=== PATIENT | female | born 1960 | race Caucasian/White ===

== ENCOUNTER 2017-08-13 05:50 | Inpatient (IN) ==
[~2017-08-13 05:50] MED LIST: Bacitracin 50,000 UNIT, Polymyxin B Sulfate 500,000 UNIT, Sodium Chloride IRRigation 1,... IR ONE
[2017-08-13] MEDS ORDERED: Lidocaine -MPF 1% 2 ML VIAL ID ONE (06:17)
[2017-08-13] MEDS ORDERED: CeFAZolin Syr 2,000MG/20 ML 2,000 MG/20 ML SYRINGE IVPB ONE (06:17)
[2017-08-13] MEDS ORDERED: Albuterol 2.5 MG/3 ML NEBULIZER IH ONE (06:17)
[2017-08-13] MEDS ORDERED: Ringers Solution, Lactated 1,000 ML IVC SCH ×2 (06:30→11:59)
[2017-08-13] MEDS ORDERED: *HR* FentaNYL (PF) 100 MCG/2 ML VIAL ONE (07:11)
[2017-08-13] MEDS ORDERED: *HR* Midazolam HCl 2 MG/2 ML VIAL ONE (07:11)
[2017-08-13] MEDS ORDERED: *HR* Remifentanil 2 MG VIAL IVP ONE (07:11)
[2017-08-13] MEDS ORDERED: *HR* Propofol 200 MG/20 ML VIAL IVP ONE (07:11)
[2017-08-13] MEDS ORDERED: Lidocaine -MPF 2% 2 ML VIAL ONE (07:18)
[2017-08-13] MEDS ORDERED: *HR* Succinylcholine 200 MG/10 ML VIAL IVP ONE (07:18)
[2017-08-13] MEDS ORDERED: *HR* Rocuronium Bromide 50 MG/5 ML VIAL ONE (07:18)
[2017-08-13] MEDS ORDERED: Pregabalin 75 MG CAPSULE PO ONE (07:37)
[2017-08-13] MEDS ORDERED: Acetaminophen IV 1,000 MG/100 ML INFUS..BTL IVPB ONE (07:37)
[2017-08-13] MEDS ORDERED: Famotidine 20 MG/2 ML VIAL IVP ONE (07:37)
--- NOTE | 2017-08-13 07:38 | History & Physical Report ---
Date of Encounter: 08/13/17 Time of Encounter: 07:30 24 Hour HP Update - Instructions Instructions: If the History and Physical is less than 30 days old and was completed prior to A.M. admission and or procedure and has NOT been updated on calendar day of procedure please complete this update prior to performing procedure. - Update Patient reports changes in Medical Condition: No Changes in examination, assessment, or condition: No Changes in Medication: No Preop tests/diagnostics Reviewed: Yes Pre-Op MRSA Screen: Negative Surgery Remains Indicated: Yes Consent for Planned Operative Procedure(s) Verified: Yes - Pre-Operative Checklist Preoperative Checklist Indicated: No Prophylactic Antibiotic Ordered: Yes Home Medications Include Beta Bala: No Beta Bala Taken Today (Day of Surgery): No Beta Bala Taken Yesterday (Day Prior to Surgery): No Is VTE Prophylaxis Indicated?: Yes
--- NOTE | 2017-08-13 07:45 | Anesthesia Evaluation PreOp ---
Date of Encounter: 08/13/17 Time of Encounter: 07:40 - Past History Planned Operation: PLIF L4-5 Cardiac History: Denies any Significant Hx Pulmonary History: Smoker [employer] History: Denies Any Significant HX Other Medical History: Denies Any Significant HX Anesthesia History: No Prior Anesthetic Complications : No Alcohol Use: none Drug use: none Medications and Allergies PARoxetine HCl [Paroxetine HCl] 40 mg PO DAILY 08/13/17 [History] Tramadol HCl [Ultram] 50 mg PO QID PRN 08/13/17 [History] Varenicline Tartrate [Chantix Continuing Months Pack] 1 mg PO DAILY 08/13/17 [ History] 3 Allergy/AdvReac Type Severity Reaction Status Date / Time No Known Allergies Allergy Verified 08/13/17 07:16 - Meds/Allergy Pre-op Review Medications Reviewed: Yes Allergies Reviewed: Yes Beta Blockers on Current Med List: No Anesthesia Results - Labs Laboratory Tests 08/01/17 08/01/17 09:52 09:52 Hgb 15.5 H Hct 45.8 H Plt Count 204 Sodium 137 Potassium 4.1 BUN 16 Creatinine 0.64 Anesthesia Exam O2 Sat Height 1.52 m Height 1.52 m Height 1.52 m Weight 58.967 kg Weight 58.967 kg Weight 58.967 kg O2 Sat by Pulse Oximetry 96 O2 Sat by Pulse Oximetry 96 O2 Sat by Pulse Oximetry 96 Vital Signs Temp Pulse Resp BP Pulse Ox 98.8 F 56 18 144/62 96 08/13/17 06:16 08/13/17 06:16 08/13/17 06:16 08/13/17 06:16 08/13/17 06:16 Height: 5'0 Weight: 130 lbs NPO (# of Hours): MN Pain Scale: 0 - HEENT Pupil (Motor): Pupils equal, EOMI Mallampati: II Teeth: Normal Oral Opening: Greater than 3 - [employer] LOC: Oriented [employer] Motor: Normal RUE, Normal LUE, Normal Face, Deficit RLE, Deficit LLE ( slight weakness bilat) [employer] Sensory: Normal: RUE, LUE, Face, Deficit: RLE, LLE (paresthesia bilat) - Cardiac Rhythm: Regular Murmur: None JVD: No Carotid Bruit: No - Pulmonary Breath Sounds: bilateral Clear Respiratory Effort: Symmetrical Anesthesia Assess/Plan ASA Score: 2 Modified [place] Scale for Level of Consciousness: Cooperative, oriented, and tranquil Anesthetic Plan: General Monitoring Plan: Standard Monitors Recovery Plan: PACU (Discussed GA, agrees to proceed)
[2017-08-13] MEDS ORDERED: EPHEDrine 50 MG/ML VIAL ONE ×2 (08:08→09:24)
[2017-08-13] MEDS ORDERED: Ondansetron 4 MG/2 ML VIAL IVP ONE (08:27)
--- NOTE | 2017-08-13 10:31 | Orthopedic Operative Note ---
Date of procedure: 08/13/17 Pre-op diagnosis: Spondylolisthesis, lumbar stenosis Post-op diagnosis: same Operation/Findings: Posterior lumbar interbody fusion L4-L5: The patient successfully underwent general endotracheal anesthesia. The patient was given antibiotics prior to the start of the procedure. Compression boots and stockings were used for deep vein thrombosis prophylaxis. A Srinivasan catheter was placed. Leads for neuro monitoring were placed on the upper and lower extremities. This included the cranium. The neuro monitoring personnel confirmed there were satisfactory readings prior to the start of the procedure. The patient was turned prone on the Jaime table. The back was prepped and draped in the usual sterile fashion. An incision was was marked and centered over the involved L4 and L5 levels in the mid line. The incision was deepened through the lumbar fascia. Bovie cautery and Lyles elevators were used to reflect the paraspinal musculature at the lateral extent of the transverse processes of the involved L4 and L5 levels. Iris clamps were placed over the L4 and L5 spinous processes. An intraoperative lateral fluorograph was obtained. A conversation was held between the surgeon and radiologist and both confirmed we had the correct operative levels. We then placed pedicle screws in standard fashion with the aid of fluoroscopy and anatomic landmarks. Briefly a starter awl was used. A gearshift was subsequently used to enter the barge pilot hole via a transpedicular route into the vertebral body. The barge pilot hole was tapped with an undersized instrument, and subsequently four 6.5 x 40 mm pedicle screws were placed bilaterally at the indicated L4 and L5 levels. The screws were tested with the aid of the neurologic monitoring staff via pedicle screw stimulation. All reading suggested there was no significant cortical wall breech. The screws were also evaluated fluoro- graphically and appeared to be in satisfactory position. We then turned our attention to the decompression portion of the procedure. We removed the supraspinous and interspinous ligaments and subsequently the insertion of the ligamentum flavum on the undersurface of the proximal L4 lamina was dislodged with a curette. We then removed the ligamentum flavum as well as undercut the L4-5 facets at this L4-5 level to decompress the lateral recesses. We also performed a L4 laminectomy. After the decompression, which was over and above that which was required to place the interbody graft, the foramen and traversing roots at this L4-L5 level were found to be free and patent. We also took part of the medial facets in order to aid in the decompression. We then protected the neural elements including the thecal sac and traversing nerve root on the right with a dural retractor. We made an annulotomy into the L4-L5 disc space and then removed the entire disc material using Pituitary instruments. We trialed various size grafts after the endplates were prepared for graft insertion. A 10 x 26 enter body graft fit well within the L4-L5 disc space. We obtained some bone from the right posterior superior iliac spine through us a separate incision and combined with this with the bone which we had saved from the laminectomy portion of the procedure. This autograft bone was first placed in the anterior portion of the L4-L5 disc space and additional bone was placed within the interbody graft spacer. We then placed the interbody graft spacer obliquely across the L4-L5 disc space towards the midline while protecting the neural elements with a root retractor. When the graft was found to be in satisfactory position the mobile practice lead was removed. We then copiously irrigated the wound. We then decorticated the L4 and L5 transverse processes as well as the L4-L5 facet joints of the involved levels to aid in the posterolateral fusion. We placed autograft bone in the lateral gutters over these regions. We then placed rods within the screw heads of the involved L4 and L5 levels and first locked the distal screws and then subsequently locked the proximal screws so as to improve and reduce the spondylolisthesis previously seen. We then closed the wound in layers with 1 Vicryl for the fascia, 2-0 Vicryl. Subcutaneous tissue, and Dermabond was used for skin closure. Sterile dressings were placed over the wound. The patient was turned supine on a hospital bed and extubated. All sponge instruments and needle counts were correct at the end of the procedure. The patient tolerated the procedure well without complications. Anesthesia: GETA Surgeon: Ty García Jr Was there an cleaner assistant present: No Estimated blood loss (cc): 100 Specimen: None Condition: stable Disposition: PACU
[2017-08-13] MEDS: *HR* Morphine 2 MG/ML SYRINGE IVP PRN ×2 (10:51→10:59)
[2017-08-13] MEDS ORDERED: Naloxone 0.4 MG/ML INJ IVP PRN (11:59)
[2017-08-13] MEDS ORDERED: Ondansetron 4 MG/2 ML VIAL IVP PRN (11:59)
[2017-08-13] MEDS: *HR* HYDROcodone/Acet 5/325 mg TABLET PO PRN ×3 (12:38→20:19)
[2017-08-13] MEDS: CeFAZolin Premix DUPLEX 2,000 MG/50 ML BAG IVPB SCH ×2 (16:29→23:23)
[2017-08-14] MEDS: *HR* OxyCODONE Immed Rel 5 MG TABLET PO PRN ×5 (00:17→22:04)
[2017-08-14 03:39] LABS: Basophils # 0.1 K/mcL (0.0-0.2); Basophils % 0.5 %; Eosinophils % 0.2 %; Hematocrit 35.8 % (35.3-44.9); Hemoglobin 11.9 g/dL (11.5-15.4); Immature Granulocytes % 0.5 % (0-4); Lymphocytes # 1.7 K/mcL (0.6-4.6); Lymphocytes % 9.9 %; Mean Corpuscular HGB Conc 33.2 g/dL (31.6-35.5); Mean Corpuscular Hemoglobin 31.6 pg (28.0-33.3); Mean Platelet Volume 9.9 fL (9.4-12.4); Monocytes # 1.5 K/mcL (0.0-1.3); Monocytes % 9.1 %; Neutrophils # 13.5 K/mcL (1.6-8.9); Platelet Count 256 K/mcL (140-400); Red Blood Count 3.77 M/mcL (3.82-4.97); Red Cell Distribution Width 12.9 % (11.5-14.5); Segmented Neutrophils % 79.8 %
[2017-08-14 03:55] LABS: BUN/Creatinine Ratio 19 (6-26); Blood Urea Nitrogen 10 mg/dL (6-20); Carbon Dioxide 29 mEq/L (23-29); Chloride 106 mEq/L (98-107); Glucose 116 mg/dL (70-105); Osmolality,Calculated 288 (280-300); Sodium 139 mEq/L (136-145); eGFR For African Americans > 60 (> 60); eGFR For Non-African Americans > 60 (> 60)
[2017-08-14] MEDS ORDERED: Bacitracin 50,000 UNIT, Polymyxin B Sulfate 500,000 UNIT, Sodium Chloride IRRigation 1,... IR ONE (06:00)
[2017-08-14] MEDS: Acetaminophen 325 MG TABLET PO PRN ×2 (08:14→16:02)
--- NOTE | 2017-08-14 14:27 | Spine Progress Note ---
Date of Encounter: 08/14/17 Time of Encounter: 14:27 Subjective Principal diagnosis: Spondylolisthesis, lumbar stenosis Interval history: The patient is without complaints. Afebrile vital signs are stable. Incision is clean dry and intact. Neurovascularly intact with regard to bilateral lower extremities. Fires all upper and lower extremity motor groups. Negative straight leg raise. Assessment :stable. Plan mobilize ,continue analgesics, discharge planning. Objective Vital signs: Vital Signs Temp Pulse Resp BP Pulse Ox 08/14/17 11:37 97.7 F 72 16 104/63 95 08/14/17 06:33 98.3 F 66 15 119/64 92 08/14/17 03:47 98.1 F 69 17 132/68 97 08/13/17 23:28 98.0 F 76 17 124/69 97 08/13/17 20:35 98.0 F 83 17 130/65 95 08/13/17 16:00 83 16 134/67 95 08/13/17 14:30 94 16 142/70 95 Intake and Output 08/13/17 08/14/17 08/14/17 23:59 07:59 15:59 Intake Total 580 / 580 1050 / 1050 Output Total 1000 / 1000 1100 / 1100 400 / 400 Balance -420 / -420 -50 / -50 -400 / -400 Intake: IV Fluids 50 / 50 50 / 50 Ancef Premix DUPLEX 2,000 mg In 50 / 50 50 / 50 50 ml @ 100 mls/hr IVPB Q8HR [facility] Rx#:[id number] Oral 530 / 530 1000 / 1000 Output: Urine 400 / 400 Catheter 1000 / 1000 1100 / 1100 - Labs CBC & BMP: 08/14/17 03:07 08/14/17 03:07 Labs: Abnormal lab results WBC 16.9 K/mcL (4.3-11.1) H 08/14/17 03:07 RBC 3.77 M/mcL (3.82-4.97) L 08/14/17 03:07 Neutrophils # 13.5 K/mcL (1.6-8.9) H 08/14/17 03:07 Monocytes # 1.5 K/mcL (0.0-1.3) H 08/14/17 03:07 Creatinine 0.52 mg/dL (0.60-1.20) L 08/14/17 03:07 Glucose 116 mg/dL (70-105) H 08/14/17 03:07 Consult Discharge Plan - Plan Referrals: NIKKI CORDERO [Primary Care Provider] -
[2017-08-15] MEDS: Acetaminophen 325 MG TABLET PO PRN (00:06)
--- NOTE | 2017-08-15 08:17 | Discharge Summary ---
Date of Encounter: 08/15/17 Time of Encounter: 08:13 - Discharge Diagnosis (1) Spondylolisthesis at L4-L5 level Priority: Primary Status: Chronic (2) Lumbar stenosis without neurogenic claudication Priority: Secondary Status: Chronic - Discharge Medications Prescriptions: OxyCODONE Immed Rel [Roxicodone 5 MG] 5 mg PO Q4HR PRN 7 Days #30 tablet PRN Reason: SEVERE PAIN Home Medications: PARoxetine HCl [Paroxetine HCl] 40 mg PO DAILY 08/13/17 [History] Tramadol HCl [Ultram] 50 mg PO QID PRN 08/13/17 [History] Varenicline Tartrate [Chantix Continuing Months Pack] 1 mg PO DAILY 08/13/17 [ History] OxyCODONE Immed Rel [Roxicodone 5 MG] 5 mg PO Q4HR PRN 7 Days #30 tablet [Rx] Allergies/Adverse Reactions: 3 Allergy/AdvReac Type Severity Reaction Status Date / Time No Known Allergies Allergy Verified 08/13/17 07:16 - Impressions ITS Impressions Lumbar Spine X-Ray 08/13/17 00:00 IMPRESSION: Improved posterior vertebral body alignment following reduction of anterolisthesis of L4 on L5, status post posterior spinal fusion, laminectomy and discectomy. D/ / Emile Kohli MD / Emile Kohli MD Interpreting Provider: Emile Kohli MD Date of admission: 08/13/17 11:46 Primary care physician: NIKKI CORDERO Consults: 08/13/17 11:59 Consult to Occupational Therapy [CONS] Routine Comment: Evaluate, develop and implement POC Reason for Consult: Postoperative rehabilitation Consult to Physical Therapy [CONS] Routine Comment: Evaluate, develop and implement POC Reason for Consult: Postoperative rehabilitation Consult to Spine Navigator [CONS] [CONS] Routine - Patient Status Disposition: Home, Self-Care Condition: Good Functional capacity at discharge: independent ambulation Overall status at discharge: patient is progressing back to baseline - Discharge Instructions Follow Up With: NIKKI CORDERO [Primary Care Provider] - - Diet and Activity Activity: as per physical therapy Diet: advance to your usual diet - Hospital Course Hospital course: Ms. Ross is a 57 year old female The patient had an uneventful postoperative course. Progressed from intravenous analgesic needs to oral analgesic needs only. Remained neurovascularly intact and mobilized satisfactorily. All intraoperative and/or postoperative radiographic studies were satisfactory. Patient is discharged with plan for rehabilitation and follow-up in 2 weeks post discharge on analgesic medication and patient's home medications. - Time Spent with Patient Total time spent providing and/or coordinating discharge services: - VTE Documentation of Mechanical Device: Graduated compression elastic hosiery
[2017-08-15] MEDS: *HR* OxyCODONE Immed Rel 5 MG TABLET PO PRN ×4 (08:20→22:10)
[2017-08-16] MEDS: *HR* HYDROcodone/Acet 5/325 mg TABLET PO PRN (01:10)
[2017-08-16] MEDS: *HR* OxyCODONE Immed Rel 5 MG TABLET PO PRN ×2 (05:40→10:06)
--- NOTE | 2017-08-16 08:56 | Orthopedics Progress Note ---
Date of Encounter: 08/16/17 Time of Encounter: 08:56 Subjective Principal diagnosis: Spondylolisthesis, lumbar stenosis Interval history: The patient is without complaints. Afebrile vital signs are stable. Incision is clean dry and intact. Neurovascularly intact with regard to bilateral lower extremities. Fires all upper and lower extremity motor groups. Negative straight leg raise. Assessment :stable. Plan mobilize ,continue analgesics, discharge planning. Objective Vital signs: Vital Signs Temp Pulse Resp BP Pulse Ox 08/16/17 06:57 97.7 F 83 16 108/59 92 08/16/17 00:09 99.0 F 79 14 136/76 92 08/15/17 20:17 98.9 F 79 14 131/72 94 08/15/17 14:20 98.7 F 64 16 148/67 97 08/15/17 11:39 98.5 F 80 16 152/68 96 08/15/17 09:30 98.5 F 87 16 144/76 95 Intake and Output 08/15/17 08/16/17 08/16/17 23:59 07:59 15:59 Intake Total 300 / 300 400 / 400 Output Total 250 / 250 650 / 650 Balance 50 / 50 -250 / -250 Intake: Oral 300 / 300 400 / 400 Output: Urine 250 / 250 650 / 650 - Labs CBC & BMP: 08/14/17 03:07 08/14/17 03:07 Labs: Abnormal lab results WBC 16.9 K/mcL (4.3-11.1) H 08/14/17 03:07 RBC 3.77 M/mcL (3.82-4.97) L 08/14/17 03:07 Neutrophils # 13.5 K/mcL (1.6-8.9) H 08/14/17 03:07 Monocytes # 1.5 K/mcL (0.0-1.3) H 08/14/17 03:07 Creatinine 0.52 mg/dL (0.60-1.20) L 08/14/17 03:07 Glucose 116 mg/dL (70-105) H 08/14/17 03:07 - VTE Documentation of Mechanical Device: Intermittent pneumatic compression device Consult Discharge Plan - Plan Referrals: NIKKI CORDERO [Primary Care Provider] - Prescriptions: OxyCODONE Immed Rel [Roxicodone 5 MG] 5 mg PO Q4HR PRN 7 Days #30 tablet PRN Reason: SEVERE PAIN
[2017-08-16 11:08] VITALS: BP 132/77
== END 2017-08-16 12:59 | disposition home or self-care (01) | DRG 460 ==
LOC: SAMDAY 05:50 → 3ANU 11:46 → 3NENU 16:08
PROVIDERS: ADMIT Orthopaedic Surgery Orthopaedic Surgery of the Spine; ATTEND Orthopaedic Surgery Orthopaedic Surgery of the Spine